=== PATIENT | female | born 1955 | race Hispanic/Latino ===

== ENCOUNTER 2018-10-10 20:23 | Emergency (ER) | payer MEDICARE ==
[~2018-10-10] VITALS: Ht 154.9 cm; Wt 83.5 kg
[~2018-10-10 20:23] MED LIST: ASPIRIN81 MG; CLONAZEPAM0.5 MG PO; GEODON20 MG PO; GLUCOSAMINE &1 EACH; LETROZOLE2.5 MG; LEVOTHYROXINE88 MCG PO; LISINOPRIL10 MG PO; MAGNESIUM; MELATONIN3 MG PO; METFORMIN HCL850 MG PO; METOPROLOL TART25 MG PO; NAPROXEN250 MG PO; NITROFURANTOIN100 MG PO; OXCARBAZEPINE300 MG PO; POTASSIUM CHLO20 ME1 PO; PROPRANOLOL HCL10 MG PO; SIMVASTATIN20 MG PO; TRAZODONE HCL50 MG PO; TRULICITY; ULTRACET TABLE1 EACH PO; VENLAFAXINE HCL75 M2; VENLAFAXINE HCL75 MG PO; VITAMIN D250000 UNIT; ZOLPIDEM TARTRA10 MG PO; [UNRECOGNIZED DRUG - OTHER]
--- OUTSIDE RECORDS SUMMARY | 2018-10-10 20:26 | XMS REPORT | Clinical Summary ---
Author Author [facility] Address Unknown Phone Unavailable Care Team Providers Care Biological Science Technician Name Role Phone Davis Renee MD PCP Allergies Not on File Medications Not on file Active Problems Not on file Social History Date Tobacco Use Types Packs/Day Years Used Never Assessed Sex Assigned at Date Recorded Not on file Industry Job Start Date Occupation Not on file Not on file Not on file Travel End Travel History Travel Start No recent travel history available. Last Filed Vital Signs Not on file Plan of Treatment Health Maintenance Due Date Last Done Comments BREAST CANCER SCREENING 12/24/2005 COLONOSCOPY SCREENING 12/24/2005 SHINGLES VACCINES (#1) 12/24/2005 INFLUENZA VACCINE 10/07/2018 Results Not on fileafter 10/09/2017 Insurance Type Payer Benefit Subscriber ID Effective Phone Address Plan / Dates Group PPO HUMANA HUMANA xxxxxxxxx 2009-P CHOICE resent CARE PPO PPO HUMANA MEDICARE HUMANA xxxxxxxxx 2009-P MEDICARE resent PPO/PFFS/E [facility] Advance Directives Patient has advance care planning documents on file. For more information, jeannette salas contact: Timbo Arteaga [address] [place] [address]
--- NOTE | 2018-10-10 22:40 | Diagnostic Imaging Report ---
Right knee radiograph 3 views HISTORY: Pain. COMPARISON: None available. FINDINGS: Bones: No acute displaced fracture. Osseous alignment is within normal limits. Joints: Medial compartment joint space. Tricompartmental osteophytes, worse in the medial compartment. Focal ossifications in the posterior knee possibly loose bodies. Small joint effusion. Soft tissues: The soft tissues appear unremarkable. IMPRESSION: No displaced fracture. Moderate degenerative changes in the knee, worst in the medial compartment, with small joint effusion. Signed by: Mihir Wade DO on 10/10/2018 10:36 PM
[2018-10-10 23:45] VITALS: BP 137/78
== END 2018-10-10 23:50 | disposition home or self-care (01) ==
LOC: ER 20:23
DX: M79.661 Pain in right lower leg (principal); M25.561 Pain in right knee; M17.12 Unilateral primary osteoarthritis, left knee; I10 Essential (primary) hypertension; E11.9 Type 2 diabetes mellitus without complications; E03.9 Hypothyroidism, unspecified; Z85.3 Personal history of malignant neoplasm of breast
CPT/HCPCS: 93971; 99283

== ENCOUNTER 2020-08-14 15:51 | Emergency (ER) | payer OTHER, MEDICARE ==
[~2020-08-14] VITALS: Ht 154.9 cm; Wt 83.5 kg
[2020-08-14] MEDS ORDERED: ASPIRIN 81 MG CHEW TAB PO ONE (17:15)
[2020-08-14] MEDS ORDERED: ONDANSETRON HCL INJ 2MG/ML 2ML 2 MG/ML VIAL IV STA (17:26)
[2020-08-14] MEDS ORDERED: SODIUM CHLORIDE 0.9% 1000ML 1,000 ML IV ONE (17:30)
[2020-08-14 17:33] LABS: BASOPHILS # (AUTO) 0.1 (0.0-0.1); BASOPHILS % 0.5 % (0.0-1.0); EOSINOPHILS # (AUTO) 0.2 (0.0-0.4); EOSINOPHILS % 2.3 % (0.0-6.0); HEMATOCRIT 35.8 % (34.2-44.1); HEMOGLOBIN 11.8 g/dL (12.0-16.0); LYMPHOCYTES # (AUTO) 3.3 (1.0-3.2); LYMPHOCYTES % 32.3 % (18.0-39.1); MEAN CORPUSCULAR HEMOGLOBIN 30.7 pg (28-32); MEAN CORPUSCULAR VOLUME 93.2 fL (81-99); MONOCYTES # (AUTO) 0.8 (0.2-0.8); MONOCYTES % 7.6 % (4.4-11.3); NEUTROPHILS # (AUTO) 5.7 (2.1-6.9); NEUTROPHILS % 56.4 % (38.7-80.0); PLATELET COUNT 343 x10e3/uL (140-360); RED BLOOD COUNT 3.84 x10e6/uL (3.6-5.1); RED CELL DISTRIBUTION WIDTH 13.7 % (11.7-14.4)
[2020-08-14 17:41] LABS: CLARITY,URINE SL CLOUDY (CLEAR); COLOR,URINE YELLOW (YELLOW); KETONES,URINE NEGATIVE (NEGATIVE); LEUKOCYTE ESTERASE ,URINE MODERATE (NEGATIVE); NITRITE,URINE NEGATIVE (NEGATIVE); PROTEIN,URINE DIPSTICK NEGATIVE (NEGATIVE)
[2020-08-14 17:42] LABS: URINE UROBILINOGEN 0.2 mg/dL (0.2 - 1)
[2020-08-14 17:53] LABS: ALANINE AMINOTRANSFERASE 17 IU/L (0-55); ALBUMIN 3.6 g/dL (3.5-5.0); ALKALINE PHOSPHATASE 82 IU/L (40-150); ANION GAP 16.9 mmol/L (8-16); BLOOD UREA NITROGEN 10 mg/dL (7-26); BUN/CREATININE RATIO 13 (6-25); CALCIUM 9.1 mg/dL (8.4-10.2); CARBON DIOXIDE 22 mmol/L (22-29); CHLORIDE 95 mmol/L (98-107); CREATINE KINASE 149 IU/L (29-168); CREATININE, SERUM 0.79 mg/dL (0.57-1.11); EST GLOMERULAR FILTRATION RATE > 60 ML/MIN (60-); GLUCOSE 123 mg/dL (74-118); POTASSIUM 3.9 mmol/L (3.5-5.1); SODIUM 130 mmol/L (136-145)
[2020-08-14 17:55] LABS: BACTERIA,URINE MANY /HPF; RBC,URINE 0-5 /HPF (0-5)
[2020-08-14 20:06] VITALS: BP 119/70
== END 2020-08-14 20:10 | disposition home or self-care (01) ==
LOC: ER 17:30
DX: R11.2 Nausea with vomiting, unspecified (principal); R19.7 Diarrhea, unspecified; E86.0 Dehydration; R53.1 Weakness; N39.0 Urinary tract infection, site not specified; W01.0XXA Fall on same level from slipping, tripping and stumbling without subsequent striking against object, initial encounter; Y93.01 Activity, walking, marching and hiking; R94.31 Abnormal electrocardiogram [ECG] [EKG]; I10 Essential (primary) hypertension; E11.65 Type 2 diabetes mellitus with hyperglycemia; E78.5 Hyperlipidemia, unspecified; K21.9 Gastro-esophageal reflux disease without esophagitis; F31.9 Bipolar disorder, unspecified; Z85.3 Personal history of malignant neoplasm of breast
CPT/HCPCS: 36415; 70450; 71045; 72125; 72170; 80053; 81001; 82550; 82553; 84484; 85025; 93005; 99284; J2405; J7030

== ENCOUNTER → 2020-11-13 | Outpatient (CLI) | payer MEDICARE | LOC: RAD 14:05 | PROVIDERS: ATTEND Family Medicine | DX: R60.0 Localized edema (principal) | CPT/HCPCS: 93971 ==

== ENCOUNTER 2020-11-27 07:19 | Observation (INO) | payer MEDICARE ==
[~2020-11-27] VITALS: Ht 154.9 cm; Wt 94.3 kg
[~2020-11-27 07:19] MED LIST changes: -ASPIRIN81 MG; +ASPIRIN81 MG PO; -LETROZOLE2.5 MG; +LETROZOLE2.5 MG PO; -VENLAFAXINE HCL75 M2; +VENLAFAXINE HCL75 M2 PO
[2020-11-27] MEDS ORDERED: MOBIC15 MG PO (07:43)
[2020-11-27] MEDS ORDERED: AMLODIPINE BESY10 MG PO (07:43)
[2020-11-27] MEDS ORDERED: HYDROCHLOROTHIA25 MG PO (07:43)
[2020-11-27] MEDS ORDERED: DICYCLOMINE HCL20 MG PO (07:43)
[2020-11-27] MEDS ORDERED: ALENDRONATE SOD70 MG PO (07:43)
[2020-11-27] MEDS ORDERED: NEURONTIN300 MG PO (07:43)
[2020-11-27] MEDS ORDERED: JANUVIA100 MG PO (07:43)
[2020-11-27] MEDS ORDERED: LEVOTHYROXINE100 MCG PO (07:43)
[2020-11-27] MEDS ORDERED: LOSARTAN POTASS25 MG PO (07:48)
[2020-11-27] MEDS ORDERED: LEVOCETIRIZINE D5 MG PO (07:48)
[2020-11-27] MEDS ORDERED: KETOROLAC TROMETHAMINE 30 MG/ML VIAL IV STA (07:57)
[2020-11-27 08:19] LABS: BASOPHILS # (AUTO) 0.1 (0.0-0.1); BASOPHILS % 0.4 % (0.0-1.0); EOSINOPHILS # (AUTO) 0.3 (0.0-0.4); EOSINOPHILS % 2.2 % (0.0-6.0); HEMATOCRIT 38.4 % (34.2-44.1); HEMOGLOBIN 12.6 g/dL (12.0-16.0); LYMPHOCYTES # (AUTO) 2.1 (1.0-3.2); LYMPHOCYTES % 14.9 % (18.0-39.1); MEAN CORPUSCULAR HEMOGLOBIN 31.2 pg (28-32); MEAN CORPUSCULAR HGB CONC 32.8 g/dL (31-35); MONOCYTES # (AUTO) 1.3 (0.2-0.8); MONOCYTES % 9.4 % (4.4-11.3); NEUTROPHILS % 72.4 % (38.7-80.0); PLATELET COUNT 349 x10e3/uL (140-360); RED BLOOD COUNT 4.04 x10e6/uL (3.6-5.1); RED CELL DISTRIBUTION WIDTH 13.2 % (11.7-14.4)
[2020-11-27 08:35] LABS: ANION GAP 18.5 mmol/L (8-16); CALCIUM 9.4 mg/dL (8.4-10.2); CREATININE, SERUM 1.92 mg/dL (0.57-1.11); POTASSIUM 3.5 mmol/L (3.5-5.1)
[2020-11-27] MEDS ORDERED: SODIUM CHLORIDE 0.9% 1000ML 1,000 ML IV SCH (09:00)
[2020-11-27] MEDS ORDERED: ONDANSETRON HCL INJ 2MG/ML 2ML 2 MG/ML VIAL IV PRN (09:30)
[2020-11-27] MEDS: SODIUM CHLORIDE 0.9% 1000ML 1,000 ML IV SCH ×2 (11:55→21:32)
[2020-11-27] MEDS: MORPHINE SULFATE INJ 4 MG/ML INJ 1ML IV PRN ×2 (13:09→21:28)
[2020-11-27] MEDS ORDERED: MELOXICAM15 MG PO (16:12)
[2020-11-27 16:21] VITALS: BP 118/62
[2020-11-27] MEDS: ACETAMINOPHEN/CODEINE 300MG - 30MG TAB PO PRN (20:09)
[2020-11-27 20:53] VITALS: BP 109/66
[2020-11-27 21:00] VITALS: BP 109/66
[2020-11-27] MEDS ORDERED: TRAZODONE HCL 50 MG TAB PO SCH (21:00)
[2020-11-28] VITALS (9 sets, daily range): BP systolic 93–146; BP diastolic 38–89
[2020-11-28] MEDS: SODIUM CHLORIDE 0.9% 1000ML 1,000 ML IV SCH ×4 (00:04→18:24)
[2020-11-28] MEDS: ACETAMINOPHEN/CODEINE 300MG - 30MG TAB PO PRN (03:00)
[2020-11-28 05:26] LABS: BASOPHILS % 0.3 % (0.0-1.0); EOSINOPHILS # (AUTO) 0.4 (0.0-0.4); EOSINOPHILS % 4.2 % (0.0-6.0); HEMATOCRIT 30.6 % (34.2-44.1); HEMOGLOBIN 10.1 g/dL (12.0-16.0); LYMPHOCYTES # (AUTO) 1.9 (1.0-3.2); LYMPHOCYTES % 21.7 % (18.0-39.1); MEAN CORPUSCULAR HEMOGLOBIN 31.6 pg (28-32); MEAN CORPUSCULAR VOLUME 95.6 fL (81-99); MONOCYTES # (AUTO) 0.9 (0.2-0.8); MONOCYTES % 10.3 % (4.4-11.3); NEUTROPHILS # (AUTO) 5.6 (2.1-6.9); NEUTROPHILS % 63.2 % (38.7-80.0); PLATELET COUNT 265 x10e3/uL (140-360)
[2020-11-28 05:57] LABS: ANION GAP 11.7 mmol/L (8-16); CALCIUM 8.2 mg/dL (8.4-10.2); CREATININE, SERUM 0.97 mg/dL (0.57-1.11); POTASSIUM 3.7 mmol/L (3.5-5.1)
[2020-11-28] MEDS: MORPHINE SULFATE INJ 4 MG/ML INJ 1ML IV PRN (06:18)
[2020-11-28] MEDS ORDERED: DICYCLOMINE HCL 20 MG TAB PO PRN (08:15)
[2020-11-28] MEDS ORDERED: CEFTRIAXONE 1 GM in SODIUM CHLORIDE 0.9% 50ML 50 ML IV SCH (09:00)
[2020-11-28] MEDS ORDERED: LEVOTHYROXINE SODIUM 100 MCG TAB PO SCH (09:00)
[2020-11-28] MEDS ORDERED: LORATADINE 10 MG TAB PO SCH (09:00)
[2020-11-28] MEDS ORDERED: AMLODIPINE BESYLATE 10 MG TAB PO SCH (09:00)
[2020-11-28] MEDS ORDERED: VENLAFAXINE HCL 75 MG CAPCR PO SCH (09:00)
[2020-11-28] MEDS ORDERED: SITAGLIPTIN 100 MG TAB PO SCH (09:00)
[2020-11-28] MEDS ORDERED: ASPIRIN 81 MG CHEW TAB PO SCH (09:00)
[2020-11-28] MEDS ORDERED: LETROZOLE PO SCH (09:00)
[2020-11-28] MEDS ORDERED: LOSARTAN POTASSIUM 25 MG TAB PO SCH (09:00)
[2020-11-28] MEDS: METOPROLOL TARTRATE 25 MG TAB PO SCH ×2 (10:12→16:30)
[2020-11-28] MEDS: ZIPRASIDONE 20 MG CAP PO SCH ×2 (10:13→16:30)
[2020-11-28] MEDS: OXCARBAZEPINE 300 MG TAB PO SCH ×2 (10:14→16:30)
[2020-11-28] MEDS ORDERED: TRAMADOL HCL 50 MG TAB PO PRN (10:15)
[2020-11-28 10:21] LABS: CLARITY,URINE CLOUDY (CLEAR); COLOR,URINE YELLOW (YELLOW); KETONES,URINE NEGATIVE (NEGATIVE); LEUKOCYTE ESTERASE ,URINE MODERATE (NEGATIVE); NITRITE,URINE POSITIVE (NEGATIVE); PROTEIN,URINE DIPSTICK NEGATIVE (NEGATIVE); URINE UROBILINOGEN 0.2 mg/dL (0.2 - 1)
[2020-11-28 10:23] LABS: BACTERIA,URINE MANY /HPF; RBC,URINE 0-5 /HPF (0-5); WBC,URINE (MAN) >50 /HPF (0-5)
[2020-11-28] MEDS ORDERED: [UNRECOGNIZED DRUG - OTHER] (18:39)
[2020-11-28] MEDS ORDERED: ULTRAM50 MG PO (19:14)
[2020-11-28] MEDS ORDERED: CIPRO500 MG PO (19:15)
[2020-11-28] MEDS ORDERED: SIMVASTATIN 20 MG TAB PO SCH (21:00)
[2020-11-28] MEDS ORDERED: TRAZODONE HCL 50 MG TAB PO SCH (21:00)
[2020-11-28] MEDS ORDERED: GABAPENTIN 300 MG CAP PO SCH (21:00)
== END 2020-11-28 21:00 | disposition home or self-care (01) ==
LOC: ER 08:02 → ERHOLD 09:30 → MED/SURG2 14:12
PROVIDERS: ADMIT Family Medicine; ATTEND Family Medicine
DX: S93.492A Sprain of other ligament of left ankle, initial encounter (principal); N17.9 Acute kidney failure, unspecified; W19.XXXA Unspecified fall, initial encounter; I10 Essential (primary) hypertension; E11.9 Type 2 diabetes mellitus without complications; E03.9 Hypothyroidism, unspecified; F41.9 Anxiety disorder, unspecified; K21.9 Gastro-esophageal reflux disease without esophagitis; Z20.822 Contact with and (suspected) exposure to COVID-19
CPT/HCPCS: 36415 ×2; 70450; 73610; 80048 ×2; 81001; 82948 ×2; 84484; 85025 ×2; 87086; 87186; 93005; 99284; G0378 ×2; J0696; J1885; J2270 ×2; J2405; J7030 ×2; U0002

== ENCOUNTER → 2023-10-22 | Outpatient (REF) | payer MEDICARE ==
[~2023-10-22] MED LIST changes: +ALENDRONATE SOD70 MG PO; +AMLODIPINE BESY10 MG PO; +CIPRO500 MG PO; +DICYCLOMINE HCL20 MG PO; +HYDROCHLOROTHIA25 MG PO; +JANUVIA100 MG PO; +LEVOCETIRIZINE D5 MG PO; +LEVOTHYROXINE100 MCG PO; +LOSARTAN POTASS25 MG PO; +MELOXICAM15 MG PO; +MOBIC15 MG PO; +NEURONTIN300 MG PO; +ULTRAM50 MG PO; +[UNRECOGNIZED DRUG - OTHER]
== END ==
LOC: MRI 12:41
PROVIDERS: ATTEND Family Medicine
DX: M51.36 Other intervertebral disc degeneration, lumbar region (principal)
CPT/HCPCS: 72148

== ENCOUNTER → 2024-08-18 | Day surgery (SDC) | payer MEDICARE ==
[~2024-08-18] MED LIST changes: +COLESTIPOL HCL1 GM PO; -GLUCOSAMINE &1 EACH; +GLUCOSAMINE &1 EACH PO; +HYDROCODON-ACE1 EA12 PO; +JARDIANCE25 MG PO; +KLONOPIN0.5 MG PO; +LANTUS 3ML100 UNITS/ SQ; +LIDOCAINE HCL 2% LOCAL INJ 5 ML SDV VIAL INJ ONE; +LYRICA75 MG PO; +MOUNJARO2.5 MG/0.5 INJ; +OMEPRAZOLE40 MG PO; +ONDANSETRON ODT4 MG PO; +PROPOFOL IV EMULSION 10 MG/ML 20 ML VIAL ONE; +SUCRALFATE1 GM PO; -VITAMIN D250000 UNIT; +VITAMIN D250000 UNIT PO
[2024-08-18] MEDS: LACTATED RINGER'S 1,000 ML ONE (08:01)
[2024-08-18 08:16] LABS: BASOPHILS % 0.4 % (0.0-1.0); EOSINOPHILS # (AUTO) 0.4 (0.0-0.4); EOSINOPHILS % 5.2 % (0.0-6.0); HEMATOCRIT 39.7 % (34.2-44.1); HEMOGLOBIN 12.7 g/dL (12.0-16.0); LYMPHOCYTES # (AUTO) 2.2 (1.0-3.2); LYMPHOCYTES % 28.5 % (18.0-39.1); MEAN CORPUSCULAR HEMOGLOBIN 31.6 pg (28-32); MEAN CORPUSCULAR VOLUME 98.8 fL (81-99); MONOCYTES # (AUTO) 0.7 (0.2-0.8); MONOCYTES % 9.4 % (4.4-11.3); NEUTROPHILS # (AUTO) 4.4 (2.1-6.9); NEUTROPHILS % 56.1 % (38.7-80.0); PLATELET COUNT 301 x10e3/uL (140-360); RED BLOOD COUNT 4.02 x10e6/uL (3.6-5.1); RED CELL DISTRIBUTION WIDTH 13.3 % (11.7-14.4); WHITE BLOOD COUNT 7.87 x10e3/uL (4.8-10.8)
[2024-08-18 09:21] VITALS: TEMP 97
[2024-08-18 09:50] VITALS: BP 127/70; PULSE 78; RESP 16; O2SAT 97
== END | disposition home or self-care (01) ==
LOC: OR 06:59
PROVIDERS: ATTEND Internal Medicine Gastroenterology
DX: K21.9 Gastro-esophageal reflux disease without esophagitis (principal); R13.10 Dysphagia, unspecified; K29.50 Unspecified chronic gastritis without bleeding; K31.89 Other diseases of stomach and duodenum; K57.30 Diverticulosis of large intestine without perforation or abscess without bleeding; K58.9 Irritable bowel syndrome, unspecified; Z86.0100 Personal history of colon polyps, unspecified; I10 Essential (primary) hypertension; Z87.891 Personal history of nicotine dependence; E78.00 Pure hypercholesterolemia, unspecified; E11.9 Type 2 diabetes mellitus without complications; Z79.84 Long term (current) use of oral hypoglycemic drugs; Z79.4 Long term (current) use of insulin; Z79.85 Long-term (current) use of injectable non-insulin antidiabetic drugs; E05.90 Thyrotoxicosis, unspecified without thyrotoxic crisis or storm; N20.0 Calculus of kidney; Z71.3 Dietary counseling and surveillance; Z68.41 Body mass index [BMI] 40.0-44.9, adult; M81.0 Age-related osteoporosis without current pathological fracture; F31.9 Bipolar disorder, unspecified; M26.609 Unspecified temporomandibular joint disorder, unspecified side; H91.93 Unspecified hearing loss, bilateral; Z85.3 Personal history of malignant neoplasm of breast; Z79.899 Other long term (current) drug therapy; Z79.82 Long term (current) use of aspirin
CPT/HCPCS: 36415; 43233; 43239; 82948; 85025; 88305; 88342; 93005; J2003; J2704; J7121; 43450